=== PATIENT | female | born 1950 ===

== ENCOUNTER 2018-03-06 18:09 | Emergency (ER) | payer MEDICARE, BC ==
--- NOTE | 2018-03-06 18:59 | RAD ---
THREE VIEWS RIGHT HAND: 03/06/18 INDICATION: Right hand pain after fall. FINDINGS: There is a minimally displaced obliquely oriented fracture involving the long finger metacarpal shaft . No additional fracture is evident. 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 IMPRESSION: Minimally displaced obliquely oriented fracture involving the right long finger metacarpal shaft. POS: [facility]
== END 2018-03-06 20:52 | disposition home or self-care (01) ==
LOC: ERS 18:09
DX: S62.322A Displaced fracture of shaft of third metacarpal bone, right hand, initial encounter for closed fracture (principal); W18.30XA Fall on same level, unspecified, initial encounter; M81.0 Age-related osteoporosis without current pathological fracture

== ENCOUNTER 2018-11-25 12:08 | Outpatient (CLI) | payer MEDICARE, BC ==
--- NOTE | 2018-11-25 17:47 | BD ---
Exam: DEXA Bone Density 11/25/18 COMPARISON: None. HISTORY: Osteoporosis. Lumbar Spine: BMD (g/cm2) T-SCORE L1 0.643 -3.2 L2 0.679 -3.2 L3 0.708 -3.4 L4 0.789 -2.5 L1-L4 0.706 -3.1 Femoral Neck: 0.555 -2.6 Total Femur: 0.662 -2.3 FRAX-WHO fracture risk assessment tool is not reported as some T-Scores are at or below -2.5. Impression: Lumbar spine and femoral neck osteoporosis, correlating with a high associated risk for fracture. POS: [facility]
== END 2018-11-25 12:09 | disposition home or self-care (01) ==
LOC: BICMAMMO 12:08
PROVIDERS: ATTEND Internal Medicine Rheumatology
DX: M81.0 Age-related osteoporosis without current pathological fracture (principal)
CPT/HCPCS: 77080